=== PATIENT | female | born 1980 | race Caucasian/White ===

== ENCOUNTER → 2021-09-10 | Outpatient (CLI) | payer OTHER ==
[~2021-09-10] MED LIST: ALLEGRA ALLERG180 MG PO; DOCUSATE SODIU250 MG PO; HYDROCODONE-AC1 EACH PO; IBUPROFEN200 MG PO; IBUPROFEN600 MG PO
[2021-09-10 10:22] LABS: RED BLOOD COUNT 4.57 M/UL (4.00-5.10); WHITE BLOOD COUNT 9.7 K/UL (4.5-11.0)
== END ==
LOC: OPSV2 09:00
PROVIDERS: Obstetrics & Gynecology
DX: Z01.812 Encounter for preprocedural laboratory examination (principal); N94.6 Dysmenorrhea, unspecified
CPT/HCPCS: 81001; 85025

== ENCOUNTER → 2021-09-13 | Day surgery (SDC) | payer OTHER | END | disposition home or self-care (01) | LOC: OR 07:28 | DX: D25.1 Intramural leiomyoma of uterus (principal); N72 Inflammatory disease of cervix uteri; N93.8 Other specified abnormal uterine and vaginal bleeding; N94.6 Dysmenorrhea, unspecified; Z98.51 Tubal ligation status; Z80.41 Family history of malignant neoplasm of ovary; Z87.59 Personal history of other complications of pregnancy, childbirth and the puerperium; Z88.0 Allergy status to penicillin; Z88.8 Allergy status to other drugs, medicaments and biological substances | CPT/HCPCS: J0690; J1100; J1170; J1885; J2001; J2250; J2405; J2704; J2710; J3010 ==